=== PATIENT | female | born 1985 | race Caucasian/White ===

== ENCOUNTER 2017-06-24 21:51 | Inpatient (IN) | payer OTHER, MEDICAID ==
[2017-06-24] MEDS: morphine 4 MG/ML VIAL IV (23:40)
[2017-06-24] MEDS: ONDANSETRON 4 MG INJ IV (23:40)
[2017-06-24 23:53] LABS: ADD MAN DIFF? NO
[2017-06-24 23:58] LABS: WHITE BLOOD COUNT 13.7 10^3/ul (4.8-10.8)
[2017-06-24 23:58] LABS: BASOPHILS % 0.1 % (0.0-2.0); EOSINOPHILS % 0.3 % (0.0-7.0); HEMATOCRIT 33.2 % (37.0-47.0); HEMOGLOBIN 11.4 g/dl (12.0-16.0); LYMPHOCYTES # 2.3 10^3/ul (0.8-2.9); LYMPHOCYTES % 16.4 % (15.0-51.0); MEAN CORPUSCULAR HEMOGLOBIN 30.7 pg (29.0-33.0); MEAN CORPUSCULAR HGB CONC 34.3 g/dl (32.0-37.0); MEAN CORPUSCULAR VOLUME 89.5 fl (82.0-101.0); MONOCYTE # 0.6 10^3/ul (0.3-0.9); MONOCYTES % 4.5 % (0.0-11.0); NEUTROPHIL # 10.8 10^3/ul (1.6-7.5); NEUTROPHILS % 78.4 % (39.0-77.0); PLATELET COUNT 215 10^3/UL (140-415); RED BLOOD COUNT 3.71 10^6/ul (4.20-5.40); RED CELL DISTRIBUTION WIDTH 12.7 % (11.5-14.5)
[2017-06-25 00:02] LABS: MEAN PLATELET VOLUME 12.6 fl (7.4-10.4); POSITIVE DIFF @See below
[2017-06-25] MEDS: morphine 4 MG/ML VIAL IV (01:12)
[2017-06-25 01:48] LABS: ALANINE AMINOTRANSFERASE 25 IU/L (13-69); ALBUMIN/GLOBULIN RATIO 1.05; ALKALINE PHOSPHATASE 127 IU/L (42-121); ANION GAP 19 (8-16); ASPARTATE AMINO TRANSFERASE 18 IU/L (15-46); BILIRUBIN,INDIRECT 0.1 mg/dl (0-1.1); BILIRUBIN,TOTAL 0.1 mg/dl (0.2-1.3); BLOOD UREA NITROGEN 7 mg/dl (7-20); CALCIUM 8.8 mg/dl (8.4-10.2); CARBON DIOXIDE 28 mmol/L (21-31); CHLORIDE 100 mmol/L (97-110); CREATININE 0.64 mg/dl (0.44-1.00); GLUCOSE 238 mg/dl (70-220); LIPASE 180 U/L (23-300); POTASSIUM 3.4 mmol/L (3.5-5.1); TOTAL PROTEIN 7.8 g/dl (6.1-8.1)
[2017-06-25 01:52] LABS: URINE BLOOD (Dip) POC Trace-intact (NEGATIVE); URINE KETONES (Dip) POC Negative (NEGATIVE); URINE LEUKOCYTE EST (Dip) POC Negative (NEGATIVE); URINE NITRITE (Dip) POC Negative (NEGATIVE); URINE TOTAL PROTEIN POC Negative (NEGATIVE)
[2017-06-25] MEDS: LORAZEPAM 2 MG INJ IV (02:14)
[2017-06-25 02:34] LABS: ADD UMIC NO; UR ASCORBIC ACID 20 mg/dL (NEGATIVE); UR BILIRUBIN (Dip) NEGATIVE (NEGATIVE); UR BLOOD (Dip) NEGATIVE (NEGATIVE); UR CLARITY CLEAR (CLEAR); UR COLOR YELLOW (YELLOW); UR GLUCOSE (Dip) 3+ mg/dL (NEGATIVE); UR KETONES (Dip) NEGATIVE (NEGATIVE); UR LEUKOCYTE ESTERASE (Dip) NEGATIVE Leu/ul (NEGATIVE); UR NITRITE (Dip) NEGATIVE (NEGATIVE); UR SPECIFIC GRAVITY (Dip) 1.016 (1.003-1.030); UR TOTAL PROTEIN (Dip) NEGATIVE (NEGATIVE); UR UROBILINOGEN (Dip) NEGATIVE (NEGATIVE)
[2017-06-25 02:59] LABS: BARBITURATES Negative (NEGATIVE); BENZODIAZEPINES Negative (NEGATIVE); CANNABINOIDS Negative (NEGATIVE); COCAINE Negative (NEGATIVE); OPIATES Positive (NEGATIVE)
[2017-06-25 03:07] LABS: AMPHETAMINE/METHAMPHETAMINE POSITIVE (NEGATIVE)
[2017-06-25] MEDS ORDERED: LORAZEPAM 2 MG INJ IV ×3 (03:30→06:30)
[2017-06-25 03:52] LABS: SODIUM 139 mmol/L (135-144)
[2017-06-25] MEDS: PHENTOLAMINE 5 MG INJ IV (04:18)
[2017-06-25] MEDS: NITROPRUSSIDE 50 MG in DEXTROSE 5% 248 ML IV (05:02)
[2017-06-25] MEDS: POTASSIUM CHLORIDE (SR) 20 MEQ TAB PO (05:34)
[2017-06-25] MEDS ORDERED: NITROGLYCERIN (SL) 0.4 MG TAB SL (06:30)
[2017-06-25] MEDS ORDERED: NACL 0.9% 3 ML SYG IV (06:30)
[2017-06-25] MEDS ORDERED: ALBUTEROL/IPRATROPIUM (NEB) 3 ML AMP HHN (06:30)
[2017-06-25] MEDS ORDERED: NA PHOSPHATE/BIPHOS 133 ML ENEMA PR (06:30)
[2017-06-25] MEDS ORDERED: DOCUSATE SODIUM 100 MG CAP PO (06:30)
[2017-06-25] MEDS ORDERED: hydrALAzine 20 MG INJ IV (06:30)
[2017-06-25] MEDS ORDERED: ONDANSETRON 4 MG INJ IV (06:30)
[2017-06-25] MEDS ORDERED: MAGNESIUM HYDROXIDE 30ML CUP PO (06:30)
[2017-06-25] MEDS ORDERED: GLUCOSE GEL 15 GRAM TUBE PO ×2 (06:45)
[2017-06-25] MEDS ORDERED: GLUCAGON 1 MG INJ IM (06:45)
[2017-06-25] MEDS ORDERED: GLUCOSE GEL 15 GRAM TUBE BUCCAL (06:45)
[2017-06-25] MEDS ORDERED: DEXTROSE 50% 50 ML SYRINGE IV ×2 (06:45)
[2017-06-25] MEDS: SOD CHLORIDE 0.9% 1,000 ML IV ×2 (07:04→16:43)
[2017-06-25] MEDS ORDERED: NITROPRUSSIDE 50 MG in DEXTROSE 5% 248 ML IV (08:00)
[2017-06-25 08:31] LABS: FREE T4 (FREE THYROXINE) 1.51 ng/dl (0.79-2.35)
[2017-06-25] MEDS ORDERED: niCARdipine-NS 0.1MG/ML DRIP 200 ML (09:39)
[2017-06-25] MEDS: HEPARIN 5,000 UNIT/0.5 ML VIAL SC ×2 (09:51→20:50)
[2017-06-25] MEDS: AMLODIPINE 10 MG TAB PO (09:53)
[2017-06-25] MEDS ORDERED: niCARdipine 25 MG in SOD CHLORIDE 0.9% 240 ML IV (10:00)
[2017-06-25] MEDS: niCARdipine-NS 0.1MG/ML DRIP 200 ML IV ×4 (10:12→22:56)
[2017-06-25 10:33] LABS: LACTIC ACID 0.8 mmol/L (0.5-2.0)
[2017-06-25] MEDS: INSULIN ASPART [NOVOLOG] 3 ML PEN SC ×4 (12:14→20:52)
[2017-06-25] MEDS: ACETAMINOPHEN 325 MG TAB PO (15:02)
[2017-06-26] MEDS: HYDROCODONE/APAP (5/325) TAB PO ×4 (00:08→23:03)
[2017-06-26] MEDS: INSULIN ASPART [NOVOLOG] 3 ML PEN SC ×6 (01:00→21:23)
[2017-06-26] MEDS ORDERED: ACCU-CHEK XX (02:00)
[2017-06-26] MEDS: SOD CHLORIDE 0.9% 1,000 ML IV (03:25)
[2017-06-26] MEDS: niCARdipine-NS 0.1MG/ML DRIP 200 ML IV (03:25)
[2017-06-26] MEDS: PANTOPRAZOLE (EC) 40 MG TAB PO (05:56)
[2017-06-26 06:45] LABS: ADD MAN DIFF? NO
[2017-06-26 06:54] LABS: WHITE BLOOD COUNT 11.7 10^3/ul (4.8-10.8)
[2017-06-26 06:54] LABS: BASOPHILS % 0.3 % (0.0-2.0); EOSINOPHILS # 0.1 10^3/ul (0.0-0.5); EOSINOPHILS % 0.5 % (0.0-7.0); HEMOGLOBIN 11.2 g/dl (12.0-16.0); LYMPHOCYTES # 2.2 10^3/ul (0.8-2.9); LYMPHOCYTES % 19.1 % (15.0-51.0); MEAN CORPUSCULAR HEMOGLOBIN 30.4 pg (29.0-33.0); MEAN CORPUSCULAR HGB CONC 33.9 g/dl (32.0-37.0); MEAN CORPUSCULAR VOLUME 89.7 fl (82.0-101.0); MONOCYTE # 0.5 10^3/ul (0.3-0.9); MONOCYTES % 4.2 % (0.0-11.0); NEUTROPHIL # 8.8 10^3/ul (1.6-7.5); NEUTROPHILS % 75.6 % (39.0-77.0); PLATELET COUNT 256 10^3/UL (140-415); RED BLOOD COUNT 3.68 10^6/ul (4.20-5.40); RED CELL DISTRIBUTION WIDTH 12.5 % (11.5-14.5)
[2017-06-26 07:38] LABS: HEMOGLOBIN A1C 7.3 % (0-5.9)
[2017-06-26 07:39] LABS: CHOLESTEROL 117 mg/dl (100-200)
[2017-06-26 07:39] LABS: ANION GAP 13 (8-16); BLOOD UREA NITROGEN 4 mg/dl (7-20); CALCIUM 8.5 mg/dl (8.4-10.2); CARBON DIOXIDE 28 mmol/L (21-31); CHLORIDE 101 mmol/L (97-110); CHOL/HDL RATIO 3.4 RATIO; CREATININE 0.56 mg/dl (0.44-1.00); GLUCOSE 134 mg/dl (70-220); HDL CHOLESTEROL 34 mg/dl (34-82); LDL CHOLESTEROL,CALCULATED 57 mg/dl; MAGNESIUM 1.6 mg/dl (1.7-2.5); PHOSPHORUS 2.8 mg/dl (2.5-4.9); POTASSIUM 3.7 mmol/L (3.5-5.1); SODIUM 138 mmol/L (135-144); TRIGLYCERIDES 132 mg/dl (0-149)
[2017-06-26] MEDS: AMLODIPINE 10 MG TAB PO (08:34)
[2017-06-26] MEDS: HEPARIN 5,000 UNIT/0.5 ML VIAL SC ×2 (08:43→21:21)
[2017-06-26] MEDS: niCARdipine 25 MG in SOD CHLORIDE 0.9% 250 ML IV (09:17)
[2017-06-26] MEDS: LISINOPRIL 10 MG TAB PO (10:03)
[2017-06-26] MEDS: MAGNESIUM SULFATE 2 GM/50 ML 50 ML IVPB (10:04)
[2017-06-26] MEDS: morphine 2 MG INJ IV (19:20)
[2017-06-27] MEDS: INSULIN ASPART [NOVOLOG] 3 ML PEN SC ×6 (01:00→20:32)
[2017-06-27 05:42] LABS: ADD MAN DIFF? NO
[2017-06-27 06:05] LABS: BASOPHILS % 0.2 % (0.0-2.0); EOSINOPHILS # 0.1 10^3/ul (0.0-0.5); EOSINOPHILS % 0.8 % (0.0-7.0); HEMATOCRIT 34.7 % (37.0-47.0); HEMOGLOBIN 11.8 g/dl (12.0-16.0); LYMPHOCYTES # 2.3 10^3/ul (0.8-2.9); LYMPHOCYTES % 21.3 % (15.0-51.0); MEAN CORPUSCULAR HEMOGLOBIN 30.4 pg (29.0-33.0); MEAN CORPUSCULAR VOLUME 89.4 fl (82.0-101.0); MEAN PLATELET VOLUME 11.8 fl (7.4-10.4); MONOCYTE # 0.6 10^3/ul (0.3-0.9); MONOCYTES % 5.6 % (0.0-11.0); NEUTROPHIL # 7.7 10^3/ul (1.6-7.5); NEUTROPHILS % 71.8 % (39.0-77.0); PLATELET COUNT 301 10^3/UL (140-415); RED BLOOD COUNT 3.88 10^6/ul (4.20-5.40); RED CELL DISTRIBUTION WIDTH 12.2 % (11.5-14.5)
[2017-06-27 06:05] LABS: WHITE BLOOD COUNT 10.7 10^3/ul (4.8-10.8)
[2017-06-27] MEDS: PANTOPRAZOLE (EC) 40 MG TAB PO (06:33)
[2017-06-27 06:40] LABS: PHOSPHORUS 3.5 mg/dl (2.5-4.9)
[2017-06-27 06:40] LABS: MAGNESIUM 1.8 mg/dl (1.7-2.5)
[2017-06-27 06:42] LABS: ANION GAP 13 (8-16); BLOOD UREA NITROGEN 10 mg/dl (7-20); CALCIUM 8.3 mg/dl (8.4-10.2); CARBON DIOXIDE 26 mmol/L (21-31); CHLORIDE 102 mmol/L (97-110); GLUCOSE 168 mg/dl (70-220); POTASSIUM 3.5 mmol/L (3.5-5.1); SODIUM 137 mmol/L (135-144)
[2017-06-27] MEDS: AMLODIPINE 10 MG TAB PO (08:41)
[2017-06-27] MEDS: LISINOPRIL 10 MG TAB PO (08:42)
[2017-06-27] MEDS: HEPARIN 5,000 UNIT/0.5 ML VIAL SC ×2 (08:49→20:32)
[2017-06-27] MEDS ORDERED: POTASSIUM CHLORIDE 100 ML (09:47)
[2017-06-27] MEDS: POTASSIUM CHLORIDE (SR) 20 MEQ TAB PO (10:02)
[2017-06-27 10:30] LABS: ALANINE AMINOTRANSFERASE 27 IU/L (13-69); ALBUMIN 3.6 g/dl (3.3-4.9); ALKALINE PHOSPHATASE 131 IU/L (42-121); ASPARTATE AMINO TRANSFERASE 21 IU/L (15-46); BILIRUBIN,INDIRECT 0.1 mg/dl (0-1.1); BILIRUBIN,TOTAL 0.1 mg/dl (0.2-1.3); TOTAL PROTEIN 7.3 g/dl (6.1-8.1)
[2017-06-27] MEDS: HYDROCODONE/APAP (5/325) TAB PO ×2 (13:08→19:30)
[2017-06-28] MEDS: INSULIN ASPART [NOVOLOG] 3 ML PEN SC ×3 (01:00→13:15)
[2017-06-28] MEDS: PANTOPRAZOLE (EC) 40 MG TAB PO (05:24)
[2017-06-28] MEDS: HYDROCODONE/APAP (5/325) TAB PO (05:25)
[2017-06-28] MEDS: LISINOPRIL 10 MG TAB PO (08:20)
[2017-06-28] MEDS: AMLODIPINE 10 MG TAB PO (08:20)
[2017-06-28] MEDS: HEPARIN 5,000 UNIT/0.5 ML VIAL SC (08:26)
[2017-06-28 09:33] LABS: ADD MAN DIFF? NO
[2017-06-28 09:37] LABS: BASOPHILS % 0.2 % (0.0-2.0); EOSINOPHILS # 0.1 10^3/ul (0.0-0.5); EOSINOPHILS % 0.7 % (0.0-7.0); HEMATOCRIT 33.5 % (37.0-47.0); HEMOGLOBIN 11.3 g/dl (12.0-16.0); LYMPHOCYTES % 21.5 % (15.0-51.0); MEAN CORPUSCULAR HEMOGLOBIN 30.2 pg (29.0-33.0); MEAN CORPUSCULAR HGB CONC 33.7 g/dl (32.0-37.0); MEAN CORPUSCULAR VOLUME 89.6 fl (82.0-101.0); MEAN PLATELET VOLUME 11.4 fl (7.4-10.4); MONOCYTE # 0.4 10^3/ul (0.3-0.9); MONOCYTES % 4.7 % (0.0-11.0); NEUTROPHIL # 6.8 10^3/ul (1.6-7.5); NEUTROPHILS % 72.7 % (39.0-77.0); PLATELET COUNT 316 10^3/UL (140-415); RED BLOOD COUNT 3.74 10^6/ul (4.20-5.40); RED CELL DISTRIBUTION WIDTH 12.2 % (11.5-14.5)
[2017-06-28 09:37] LABS: WHITE BLOOD COUNT 9.4 10^3/ul (4.8-10.8)
[2017-06-28 10:19] LABS: ANION GAP 12 (8-16); BLOOD UREA NITROGEN 12 mg/dl (7-20); CALCIUM 8.9 mg/dl (8.4-10.2); CARBON DIOXIDE 28 mmol/L (21-31); CHLORIDE 101 mmol/L (97-110); CREATININE 0.64 mg/dl (0.44-1.00); GLUCOSE 178 mg/dl (70-220); SODIUM 137 mmol/L (135-144)
== END 2017-06-28 13:07 | disposition home or self-care (01) | DRG 305 ==
LOC: E/R 21:51 → ICU 06-25 09:02 → MS4 06-27 21:25 → E/R 21:51
DX: I16.0 Hypertensive urgency (principal); Z68.41 Body mass index [BMI] 40.0-44.9, adult; E11.9 Type 2 diabetes mellitus without complications; D64.9 Anemia, unspecified; F15.988 Other stimulant use, unspecified with other stimulant-induced disorder; R10.11 Right upper quadrant pain; E66.9 Obesity, unspecified; R10.32 Left lower quadrant pain; I10 Essential (primary) hypertension; N83.202 Unspecified ovarian cyst, left side; N83.201 Unspecified ovarian cyst, right side
CPT/HCPCS: 36415; 76705; 76830; 76856; 80048; 80053; 80061; 80076; 80307; 81003; 82962; 83036; 83605; 83690; 83735; 84100; 84439; 84443; 84703; 85025; 93005; 96374; 96375; 96376; 99291-25